=== PATIENT | female | born 1980 | race Caucasian/White ===

== ENCOUNTER 2017-04-29 09:50 | Emergency (ER) | payer MEDICAID ==
[2017-04-29] MEDS ORDERED: ONDANSETRON HCL IV 4 MG/2 ML VIAL IV ONE (09:55)
[2017-04-29] MEDS ORDERED: 0.9 % SODIUM CHLORIDE 1,000 ML BAG IV ONE (09:55)
--- NOTE | 2017-04-29 10:01 | Emergency Department Record ---
History of Present Illness - General Chief complaint: Vomiting Stated complaint: VOMITING Time Seen by Provider: 04/29/17 09:54 Source: Patient Mode of Arrival: Ambulatory Limitations: No limitations - History of Present Illness Initial comments: 37 yo female presents with nausea, vomiting, and diarrhea since Friday. Her daughters had been sick as well. No fevers. No blood in either. She has a history of having her gall bladder removed. No recent travel or antibiotics. Her daughters have since improved. MD complaint: Diarrhea, Nausea, Vomiting -: Days(s) (3) Description of Vomiting: Watery Description of Diarrhea: Water Location: Diffuse Radiation: None Severity: Moderate Quality: Cramping Consistency: Intermittent Improves with: None Worsens with: Eating Associated Symptoms: Loss of appetite - Related Data Previous Rx's Medication Instructions Recorded Budesonide [Pulmicort] 0.5 mg INH RESP.BID #60 ml 09/25/15 Ondansetron [Zofran Odt] 4 mg PO Q8H #15 tab.rapdis 04/29/17 Allergies Allergy/AdvReac Type Severity Reaction Status Date / Time promethazine HCl AdvReac BEHAVIORAL Verified 09/25/15 12:14 [From Phenergan] CHANGES Review of Systems Constitutional: Reports: Malaise. Denies: Chills, Fever, Weakness Eyes: Denies: Eye discharge, Eye pain, Vision change ENT: Denies: Congestion, Throat pain Respiratory: Reports: Cough. Denies: Dyspnea, Hemoptysis, Stridor, Wheezes Cardiovascular: Denies: Chest pain, Palpitations, Syncope Endocrine: Reports: Fatigue. Denies: Polydipsia, Polyuria Gastrointestinal: Reports: Abdominal pain, Diarrhea, Nausea, Vomiting. Denies: Constipation, Hematemesis, Hematochezia, Melena Genitourinary: Denies: Dysuria, Urgency Musculoskeletal: Denies: Arthralgia, Back pain, Myalgia, Neck pain, Other Skin: Reports: Bruising. Denies: Change in color, Pruritus Neurological: Denies: Confusion, Numbness, Weakness Psychiatric: Denies: Anxiety Hematological/Lymphatic: Denies: Blood Clots, Easy bleeding, Easy bruising, Swollen glands Past Medical History - SOCIAL HISTORY Smoking Status: Current some day smoker - RESPIRATORY Hx Respiratory Disorders: Yes Hx Asthma: Yes - CARDIOVASCULAR Hx Cardio Disorders: Yes Comment:: mitral valve prolapse - NEURO Hx Neuro Disorders: No - GI Hx GI Disorders: Yes Hx Irritable Bowel: Yes - Hx Genitourinary Disorders: No - ENDOCRINE Hx Endocrine Disorders: No - MUSCULOSKELETAL Hx Musculoskeletal Disorders: No - PSYCH Hx Psych Problems: Yes Hx Anxiety: Yes - HEMATOLOGY/ONCOLOGY Hx Hematology/Oncology Disorders: No Family Medical History Hx Cancer: Grandparents Physical Exam - General General Appearance: Alert, Oriented x3, Cooperative, No acute distress Limitations: No limitations - Head Head exam: Normal inspection - Eye Eye exam: Normal appearance, PERRL. negative: Conjunctival injection, Periorbital swelling - ENT ENT exam: Normal exam, Mucous membranes moist, Normal external ear exam Ear exam: Normal external inspection. negative: External canal tenderness Nasal Exam: Normal inspection. negative: Discharge, Sinus tenderness Mouth exam: Normal external inspection - Neck Neck exam: Normal inspection, Full ROM. negative: Tenderness - Respiratory Respiratory exam: Normal lung sounds bilaterally. negative: Accessory muscle use, Decreased breath sounds, Prolonged expiratory, Respiratory distress, Rhonchi, Stridor, Wheezes - Cardiovascular Cardiovascular Exam: Regular rate, Normal rhythm, Normal heart sounds Peripheral Pulses: 2+: Radial (R), Radial (L) - GI/Abdominal GI/Abdominal exam: Soft, Normal bowel sounds. negative: Distended, Guarding, Hernia, Rebound, Rigid, Tenderness - Rectal Rectal exam: Deferred - exam: Deferred - Extremities Extremities exam: Normal inspection, Full ROM, Normal capillary refill. negative: Pedal edema, Tenderness - Back Back exam: Reports: Normal inspection, Full ROM. Denies: CVA tenderness (R), CVA tenderness (L), Muscle spasm, Rash noted, Tenderness - Neurological Neurological exam: Alert, Normal gait, Oriented X3 - Psychiatric Psychiatric exam: Normal affect, Normal mood. negative: Agitated, Anxious - Skin Skin exam: Dry, Intact, Normal color, Warm Course - Reevaluation(s) Reevaluation #1: 04/29/17 10:20 No acute changes on the CBC 04/29/17 10:46 No acute changes on the CMP.Lipase or UA 04/29/17 11:06 The patient is doing very well We reviewed the labs No vomiting or diarrhea She will be DC home with supportive care and reasons for follow up Medical Decision Making - Lab Data Result diagrams: 04/29/17 10:07 04/29/17 10:07 Disposition Disposition: Discharge Clinical Impression: Vomiting and diarrhea Condition: (1) Good Instructions: Gastroenteritis (ED), Acute Nausea and Vomiting (ED) Additional Instructions: Rest and stay well hydrated Return if you have fever, pain, uncontrolled vomiting or diarrhea Take the Zofran as needed for nausea Call your doctor for close follow up of this ER visit. Prescriptions: Ondansetron [Zofran Odt] 4 mg PO Q8H #15 tab.rapdis Forms: Patient Portal Access Time of Disposition: 11:08 Quality - Quality Measures Quality Measures: N/A - Blood Pressure Screening Does Patient Have Any of the Following: No Blood Pressure Classification: Pre-Hypertensive BP Reading Systolic Measurement: 127 Diastolic Measurement: 85 Screening for High Blood Pressure: < Pre-Hypertensive BP, F/U Documented > [ G8950] Pre-Hypertensive Follow-up Interventions: Referral to alternative/primary care provider.
[2017-04-29 10:18] LABS: BASO % 0.1 % (0-6); EOS % 0.8 % (0-6); GRAN % 73.9 % (47-80); HEMATOCRIT 39.6 % (35.0-47.0); HEMOGLOBIN 13.8 gm/dl (11.6-16.0); LYMPH % 19.2 % (16-45); MEAN CELL VOLUME 97.5 fl (81-97); MEAN CORPUSCULAR HGB CONC 34.8 g/dl (32-36); MEAN PLATELET VOLUME 8.9 fl (7.4-10.4); PLATELET COUNT 235 K/uL (130-400); RED BLOOD COUNT 4.06 M/uL (3.80-5.40); RED CELL DISTRIBUTION WIDTH 11.7 % (11.5-14.5); WHITE BLOOD COUNT W/O DIFF 7.6 K/uL (4.2-12.2)
[2017-04-29 10:20] LABS: URINE APPEARANCE CLEAR; URINE BILIRUBIN NEGATIVE (NEGATIVE); URINE BLOOD SMALL (NEGATIVE); URINE COLOR YELLOW; URINE GLUCOSE (UA) NEGATIVE (NEGATIVE); URINE KETONE NEGATIVE (NEGATIVE); URINE LEUKOCYTE ESTERASE NEGATIVE (NEGATIVE); URINE NITRITE NEGATIVE (NEGATIVE); URINE PROTEIN NEGATIVE (NEGATIVE); URINE UROBILINOGEN 0.2 E.U./dL (0.20 - 1.00)
[2017-04-29 10:33] LABS: ALB/GLOB RATIO 1.4 (1.1-1.8); ALBUMIN 4.2 g/dL (4.0-5.0); ALKALINE PHOSPHATASE 52 U/L (35-104); ALT/SGPT 6 U/L (<33); AST/SGOT 9 U/L (10.0-35.0); BLOOD UREA NITROGEN 8 mg/dL (6-20); CREATININE 0.6 mg/dL (0.5-0.9); EST GLOMERULAR FILTRATION RATE > 60 mL/min; GLUCOSE,RANDOM 85 mg/dL (74-109); HCG,QUALITATIVE URINE NEGATIVE (NEGATIVE); LIPASE 16 U/L (13-60); TOTAL PROTEIN 7.2 g/dL (6.6-8.7); URINE MUCUS LIGHT; URINE WBC NONE SEEN (0-2/hpf)
== END 2017-04-29 11:22 | disposition home or self-care (01) ==
LOC: ER 09:50
DX: R11.2 Nausea with vomiting, unspecified (principal); R19.7 Diarrhea, unspecified
CPT/HCPCS: 99284 ×2; 96374; 96361; 83690; 85025; 80053; 81001; 81025; J2405; J7030

== ENCOUNTER 2017-07-17 14:10 | Emergency (ER) | payer MEDICAID ==
--- NOTE | 2017-07-17 14:35 | Emergency Department Record ---
History of Present Illness - General Chief complaint: Eye Problem Stated complaint: BLURRED VISION Time Seen by Provider: 07/17/17 14:27 Source: Patient Mode of Arrival: Ambulatory Limitations: No limitations - History of Present Illness Initial comments: The patient is here due to the acute onset of visual changes to her eyes about 2 hours ago. She states she was at a computer screen and then felt that she was having trouble seeing the screen with both eyes. The symptoms have slowly improved and then changed to the L eye mainly and became like tunnel vision. She then did develop a very mild posterior LU after. Presently the patient denies any significant pain, arm or leg weakness, numbness, or tingling or balance issues. She now states the vision is much improved but not back to normal. The patient does have a hx of migraines but has not had a visual aura in the past. chief complaint: Vision change Onset/Timin -: Hour(s) Onset Description: Sudden Location: Both eyes Place: Work If Injury: Other Eye Symptoms: Blurry vision Severity: Mild If Pain, Quality: Aching - Related Data Visual acuity (L) = 20/: 25 Visual acuity (R) = 20/: 25 With correction: No Previous Rx's Medication Instructions Recorded Budesonide [Pulmicort] 0.5 mg INH RESP.BID #60 ml 09/25/15 Allergies Allergy/AdvReac Type Severity Reaction Status Date / Time promethazine HCl AdvReac BEHAVIORAL Verified 07/17/17 14:19 [From Phenergan] CHANGES Travel Screening - Travel/Exposure Within Last 30 Days Have you traveled within the last 30 days?: No - Travel/Exposure Within Last Year Have you traveled outside the [place] in the last year?: No - Additonal Travel Details Have you been exposed to anyone with a communicable illness?: No - Travel Symptoms Symptom Screening: None Review of Systems Constitutional: Denies: Chills, Fever Eyes: Denies: Eye discharge ENT: Denies: Congestion Respiratory: Denies: Cough, Dyspnea Past Medical History - SOCIAL HISTORY Smoking Status: Current some day smoker Alcohol Use: None Drug Use: None - RESPIRATORY Hx Respiratory Disorders: Yes Hx Asthma: Yes - CARDIOVASCULAR Hx Cardio Disorders: Yes Comment:: mitral valve prolapse - NEURO Hx Neuro Disorders: No - GI Hx GI Disorders: Yes Hx Irritable Bowel: Yes - Hx Genitourinary Disorders: No - ENDOCRINE Hx Endocrine Disorders: No - MUSCULOSKELETAL Hx Musculoskeletal Disorders: No - PSYCH Hx Psych Problems: Yes Hx Anxiety: Yes - HEMATOLOGY/ONCOLOGY Hx Hematology/Oncology Disorders: No Family Medical History Any Significant Family History?: No Hx Cancer: Grandparents Physical Exam - General General Appearance: Alert, Oriented x3, Cooperative, No acute distress - Head Head exam: Atraumatic, Normocephalic, Normal inspection - Eye Eye exam: Normal appearance, PERRL, EOMI, Other (Neg papilledema.) With correction: No - ENT ENT exam: Normal exam, Mucous membranes moist, Normal external ear exam, Normal orophraynx, TM's normal bilaterally Throat exam: Normal inspection. negative: Tonsillar erythema, Tonsillar exudate - Neck Neck exam: Normal inspection, Full ROM. negative: Lymphadenopathy, Meningismus (The neck is very supple.), Tenderness - Respiratory Respiratory exam: Normal lung sounds bilaterally. negative: Respiratory distress - Cardiovascular Cardiovascular Exam: Regular rate, Normal rhythm, Normal heart sounds - GI/Abdominal GI/Abdominal exam: Soft, Normal bowel sounds. negative: Tenderness - Extremities Extremities exam: Normal inspection, Full ROM, Normal capillary refill. negative: Tenderness - Neurological Neurological exam: Alert, Normal gait, Oriented X3. negative: Abnormal gait, Motor sensory deficit Course Vital Signs 07/17/17 14:20 Temperature 98.6 F Pulse Rate 90 Respiratory 18 Rate Blood Pressure 123/81 Pulse Ox 98 - Reevaluation(s) Reevaluation #1: The patient is doing a lot better. She feels her vision is still slowly improving and now her LU is slowly worsening also. Now it is feeling like a normal migraine to her. She does have a hx of migraine LU's but usually does not get the visual aura. She is ready for home. I explained to her that I do feel she is having a classic migraine LU. She is again refusing a pain shot and just wants to go home. 07/17/17 15:51 Medical Decision Making - Data Complexity MDM Data: Labs Ordered and/or Reviewed, X-Ray Ordered and/or Reviewed - Lab Data Result diagrams: 07/17/17 14:50 07/17/17 14:50 - Radiology Data Radiology results: Report reviewed (Head CT: Neg.) Disposition Disposition: Discharge Clinical Impression: Migraine Qualifiers: Migraine type: unspecified Status migrainosus presence: without status migrainosus Intractability: not intractable Qualified Code(s): G43.909 - Migraine, unspecified, not intractable, without status migrainosus Disposition: Home, Self-Care Condition: (2) Stable Instructions: Migraine Headache (ED) Additional Instructions: Please continue your regular medicines and use your home pain medicines as needed. Please see your PCP next week for re check and return to the ER for any worsening symptoms. Forms: Patient Portal Access Time of Disposition: 15:56 Quality - Quality Measures Quality Measures: N/A - Blood Pressure Screening View Details: Yes Does Patient Have Any of the Following: No Blood Pressure Classification: Pre-Hypertensive BP Reading Systolic Measurement: 123 Diastolic Measurement: 81 Screening for High Blood Pressure: Patient Exclusion, Hx of HTN [G9744]
[2017-07-17] MEDS ORDERED: IBUPROFEN 600 MG TABLET PO ONE (14:51)
[2017-07-17 14:59] LABS: BASO % 0.2 % (0-6); EOS % 0.9 % (0-6); GRAN % 59.6 % (47-80); HEMATOCRIT 40.2 % (35.0-47.0); HEMOGLOBIN 13.6 gm/dl (11.6-16.0); LYMPH % 33.9 % (16-45); MEAN CELL VOLUME 98.5 fl (81-97); MEAN CORPUSCULAR HEMOGLOBIN 33.3 pg (27-33); MEAN CORPUSCULAR HGB CONC 33.8 g/dl (32-36); MEAN PLATELET VOLUME 8.8 fl (7.4-10.4); MONO % 5.4 % (0-9); PLATELET COUNT 193 K/uL (130-400); RED BLOOD COUNT 4.08 M/uL (3.80-5.40); RED CELL DISTRIBUTION WIDTH 12.2 % (11.5-14.5); WHITE BLOOD COUNT W/O DIFF 4.4 K/uL (4.2-12.2)
[2017-07-17 15:20] LABS: BLOOD UREA NITROGEN 19 mg/dL (6-20)
[2017-07-17 15:21] LABS: CREATININE 0.5 mg/dL (0.5-0.9); EST GLOMERULAR FILTRATION RATE > 60 mL/min; TOTAL PROTEIN 7.2 g/dL (6.6-8.7)
[2017-07-17 15:23] LABS: GLUCOSE,RANDOM 146 mg/dL (74-109)
[2017-07-17 15:26] LABS: ALB/GLOB RATIO 1.6 (1.1-1.8); ALBUMIN 4.4 g/dL (4.0-5.0); ALKALINE PHOSPHATASE 44 U/L (35-104); ALT/SGPT 7 U/L (<33); AST/SGOT 9 U/L (10.0-35.0)
--- NOTE | 2017-07-18 10:10 | CT SCAN REPORT ---
EXAM: CT OF THE HEAD WITHOUT CONTRAST HISTORY: BILATERAL BLURRED VISION BEGINNING 2.5 HOURS AGO. TECHNIQUE: Routine noncontrast CT examination of the head was obtained. Comparison: None. FINDINGS: The ventricles and subarachnoid spaces are normal in size. No area of abnormally increased or decreased attenuation is noted throughout the brain substance. No abnormal extraaxial fluid collection is seen. No skull abnormality is visualized. The visualized paranasal sinuses and mastoid air cells are clear. The orbits as visualized are unremarkable. IMPRESSION: NEGATIVE NONCONTRAST CT APPEARANCE OF THE HEAD. JOB NUMBER: [id number] [facility]
== END 2017-07-17 16:04 | disposition home or self-care (01) ==
LOC: ER 14:10
DX: G43.909 Migraine, unspecified, not intractable, without status migrainosus (principal); H53.8 Other visual disturbances; M54.2 Cervicalgia
CPT/HCPCS: 70450; 80053; 85025; 99283; 99284

== ENCOUNTER 2019-05-26 05:29 | Emergency (ER) | payer SELFPAY ==
[2019-05-26] MEDS ORDERED: ONDANSETRON HCL IV 4 MG/2 ML VIAL IVP ONE (05:42)
[2019-05-26] MEDS ORDERED: HYOSCYAMINE SULFATE ODT 0.125 MG TAB.SUBL SL ONE (05:42)
--- NOTE | 2019-05-26 05:44 | Emergency Department Record ---
History of Present Illness - General Chief Complaint: Abdominal Pain Stated Complaint: ABDOMINAL PAIN/DIARRHEA Time Seen by Provider: 05/26/19 05:41 Source: Patient Mode of Arrival: Ambulatory Limitations: No limitations - History of Present Illness Initial Comments: 39 yo female presents to ED for evaluation of nausea, vomiting, diarrhea, and abdominal cramping that began approximately 12 hours ago. Patient denies fevers, chills, urinary symptoms, or flank pain symptoms. Patient does report previous appy and cayden, denies similar symptoms previously. Patient also reports history of diverticulitis, reports pain and discomfort mostly to the epigastric region on examination. MD Complaint: Abdominal pain Onset/Timin -: Hour(s) Radiation: None Migration to: No migration Severity: Moderate Quality: Cramping Consistency: Constant Improves With: Nothing Worsens With: Nothing Associated Symptoms: Denies other symptoms - Related Data Patient : No Previous Rx's Medication Instructions Recorded Budesonide [Pulmicort] 0.5 mg INH RESP.BID #60 ml 09/25/15 Hyoscyamine Sulfate [Levsin-Sl] 0.25 mg SL Q8H PRN #15 tab.subl 05/26/19 Ondansetron [Zofran Odt] 4 mg PO Q8H PRN #15 tab.rapdis 05/26/19 Allergies Allergy/AdvReac Type Severity Reaction Status Date / Time promethazine HCl AdvReac BEHAVIORAL Verified 07/17/17 14:19 [From Phenergan] CHANGES Review of Systems Constitutional: Denies: Chills, Fever, Malaise, Night sweats Eyes: Denies: Eye discharge, Eye pain ENT: Denies: Congestion, Ear pain, Epistaxis Respiratory: Denies: Cough, Dyspnea Cardiovascular: Denies: Chest pain, Dyspnea on exertion Endocrine: Denies: Fatigue, Heat or cold intolerance Gastrointestinal: Reports: Abdominal pain, Diarrhea, Nausea, Vomiting. Denies: Constipation Genitourinary: Denies: Incontinence, Retention Musculoskeletal: Denies: Arthralgia, Back pain Skin: Denies: Bruising, Change in color Neurological: Denies: Abnormal gait, Confusion, Headache, Seizure Psychiatric: Denies: Anxiety Hematological/Lymphatic: Denies: Anemia, Blood Clots Past Medical History - SOCIAL HISTORY Smoking Status: Current some day smoker Drug Use: None - RESPIRATORY Hx Respiratory Disorders: Yes Hx Asthma: Yes - CARDIOVASCULAR Hx Cardio Disorders: Yes Comment:: mitral valve prolapse - NEURO Hx Neuro Disorders: No - GI Hx GI Disorders: Yes Hx Irritable Bowel: Yes - Hx Genitourinary Disorders: No - ENDOCRINE Hx Endocrine Disorders: No - MUSCULOSKELETAL Hx Musculoskeletal Disorders: No - PSYCH Hx Psych Problems: Yes Hx Anxiety: Yes - HEMATOLOGY/ONCOLOGY Hx Hematology/Oncology Disorders: No Family Medical History Hx Cancer: Grandparents Physical Exam - General General Appearance: Alert, Oriented x3, Cooperative, Mild distress Limitations: No limitations - Head Head exam: Atraumatic, Normocephalic, Normal inspection Head exam detail: negative: Abrasion, Contusion, Mcgovern's sign, General tenderness, Hematoma, Laceration - Eye Eye exam: Normal appearance. negative: Conjunctival injection, Periorbital swelling, Periorbital tenderness, Scleral icterus - ENT Ear exam: negative: Auricular hematoma, Auricular trauma Nasal Exam: negative: Active bleeding, Discharge, Dried blood, Foreign body Mouth exam: negative: Drooling, Laceration, Muffled voice, Tongue elevation - Neck Neck exam: Normal inspection. negative: Meningismus, Tenderness - Respiratory Respiratory exam: Normal lung sounds bilaterally. negative: Rales, Respiratory distress, Rhonchi, Stridor - Cardiovascular Cardiovascular Exam: Regular rate, Normal rhythm, Normal heart sounds - GI/Abdominal GI/Abdominal exam: Soft, Tenderness (Mild TTP to the epigastric region on examination, no rebound, guareding, or peritoneal signs on examination.). negative: Rebound, Rigid - Rectal Rectal exam: Deferred - exam: Deferred - Extremities Extremities exam: Normal inspection. negative: Pedal edema, Tenderness - Back Back exam: Denies: CVA tenderness (R), CVA tenderness (L) - Neurological Neurological exam: Alert, Normal gait, Oriented X3 - Psychiatric Psychiatric exam: Normal affect, Normal mood - Skin Skin exam: Normal color. negative: Abrasion Type of lesion: negative: abrasion Course Vital Signs 05/26/19 05:38 Temperature 98.4 F Pulse Rate [ 82 Left] Respiratory 16 Rate Blood Pressure 119/78 [Left Arm] Pulse Ox 97 - Reevaluation(s) Reevaluation #1: 05/26/19 06:27 Laboratory studies were reviewed and appear grossly unremarkable for an acute process. Reevaluation #2: 05/26/19 07:02 Laboratory studies were reviewed and appear grossly unremarkable for an acute process. Reevaluation #3: 05/26/19 07:47 CT Abdomen and Pelvis: Nondistended mildly thickened fluid-filled distal small bowel loops concerning for enteritis, no obstruction. 3.7x2.6 cm septated cyst left adnexa Cholecystectomy Small right middle lobe AVM Granulomatous disease Patient was updated on all results, reports that she is feeling much better and appears stable for discharge at this time on Zofran and Levsin as directed. Medical Decision Making - Lab Data Result diagrams: 05/26/19 06:00 05/26/19 06:00 Disposition Disposition: Discharge Clinical Impression: Nausea vomiting and diarrhea Disposition: Home, Self-Care Condition: (2) Stable Instructions: Acute Nausea and Vomiting (ED) Additional Instructions: Return to ED if your symptoms worsen or if you have any concerns. Zofran and Levsin as directed. Follow-up with your family doctor in 3-5 days as directed. Prescriptions: Hyoscyamine Sulfate [Levsin-Sl] 0.25 mg SL Q8H PRN #15 tab.subl PRN Reason: Abdominal Pain Ondansetron [Zofran Odt] 4 mg PO Q8H PRN #15 tab.rapdis PRN Reason: Nausea/Vomiting Forms: Patient Portal Access Time of Disposition: 07:52 Quality - Quality Measures Quality Measures: N/A - Blood Pressure Screening Does Patient Have Any of the Following: No Blood Pressure Classification: Normal BP Reading Systolic Measurement: 119 Diastolic Measurement: 78 Screening for High Blood Pressure: < Normal BP, F/U Not Required > [G8783]
[2019-05-26] MEDS ORDERED: 0.9 % SODIUM CHLORIDE 1000ML 1,000 ML IV SCH (05:45)
[2019-05-26 06:10] LABS: ABSOLUTE NEUTROPHIL COUNT 5.75; BASO % 0.1 % (0-6); EOS % 1.1 % (0-6); GRAN % 78.1 % (47-80); HEMATOCRIT 41.3 % (35.0-47.0); LYMPH % 14.5 % (16-45); MEAN CORPUSCULAR HEMOGLOBIN 33.9 pg (27-33); MEAN CORPUSCULAR HGB CONC 33.9 g/dl (32-36); MEAN PLATELET VOLUME 8.4 fl (7.4-10.4); MONO % 6.2 % (0-9); PLATELET COUNT 179 K/uL (130-400); RED BLOOD COUNT 4.13 M/uL (3.80-5.40); RED CELL DISTRIBUTION WIDTH 11.9 % (11.5-14.5); WHITE BLOOD COUNT W/O DIFF 7.4 K/uL (4.2-12.2)
[2019-05-26 06:18] LABS: BLOOD UREA NITROGEN 13 mg/dL (6-20); CREATININE 0.4 mg/dL (0.5-0.9); EST GLOMERULAR FILTRATION RATE > 60 mL/min
[2019-05-26 06:19] LABS: LIPASE 30 U/L (13-60)
[2019-05-26 06:21] LABS: GLUCOSE,RANDOM 102 mg/dL (74-109)
[2019-05-26 06:24] LABS: ALBUMIN 4.7 g/dL (4.0-5.0); ALKALINE PHOSPHATASE 51 U/L (35-104); ALT/SGPT 6 U/L (<33); AST/SGOT 12 U/L (10.0-35.0)
[2019-05-26 06:29] LABS: URINE APPEARANCE CLEAR; URINE BILIRUBIN NEGATIVE (NEGATIVE); URINE BLOOD TRACE-I (NEGATIVE); URINE COLOR YELLOW; URINE GLUCOSE (UA) NEGATIVE (NEGATIVE); URINE KETONE NEGATIVE (NEGATIVE); URINE LEUKOCYTE ESTERASE NEGATIVE (NEGATIVE); URINE NITRITE NEGATIVE (NEGATIVE); URINE PROTEIN NEGATIVE (NEGATIVE); URINE UROBILINOGEN 0.2 E.U./dL (0.20 - 1.00)
[2019-05-26 06:43] LABS: URINE EPITHELIAL CELLS 0 - 2 (FEW); URINE RBC NONE SEEN (NONE SEEN); URINE WBC NONE SEEN (0-2/hpf)
[2019-05-26 06:44] LABS: HCG,QUALITATIVE URINE NEGATIVE (NEGATIVE); URINE BACTERIA NONE SEEN
--- NOTE | 2019-05-26 07:46 | CT SCAN REPORT ---
EXAMINATION: CT Abdomen and Pelvis with IV Contrast EXAM DATE: 05/26/2019 7:18 AM TECHNIQUE: CT imaging of the abdomen and pelvis was performed with intravenous contrast. Coronal and sagittal images were reconstructed. IV Contrast: The amount and type of contrast are recorded in the medical record. INDICATION: abdominal pain COMPARISON: None ENCOUNTER: Not applicable CT ABDOMEN AND PELVIS FINDINGS: Lung Bases: Left lower lobe granuloma Small tortuous pulmonary artery branch right middle lobe with a peripheral nidus consistent with small AVM. Hepatobiliary: The liver has a normal size with a smooth surface. The hepatic and portal veins appear patent. The gallbladder is absent. There is no biliary dilatation. Pancreas: The pancreas is normal. Spleen: The spleen is not enlarged. Adrenals: The adrenal glands are normal. Kidneys, Ureters, & Bladder: Both kidneys have a normal size and there is no hydronephrosis. Both ur eters have a normal caliber and the urinary bladder is unremarkable. Gastrointestinal: Stomach unremarkable. Nondistended mildly thickened fluid-filled distal small bowel loops may be related to enteritis. No obstruction. Appendectomy. The large bowel is normal. Reproductive Organs: 3.7 x 2.6 cm septated cyst left adnexa. Follow-up pelvic ultrasound/MRI as clini neeraj directed Lymphatic System: There is no adenopathy within the abdomen or pelvis. Vasculature: Normal caliber abdominal aorta. Peritoneum: No free fluid, free air, or inflammation Abdominal Wall & Musculoskeletal: No suspicious bone lesions. IMPRESSION: 1. Nondistended mildly thickened fluid-filled distal small bowel loops possible enteritis. No obstruc tion 2. 3.7 x 2.6 cm septated cyst left adnexa. Follow-up pelvic ultrasound/MRI as clinically directed 3. Cholecystectomy 4. Small right middle lobe pulmonary AVM 5. Granulomatous disease Dictated by: Ehsan Steel MD on 05/26/2019 7:31 AM. .
== END 2019-05-26 08:05 | disposition home or self-care (01) ==
LOC: ER 05:29
DX: R11.2 Nausea with vomiting, unspecified (principal); R19.7 Diarrhea, unspecified; F17.210 Nicotine dependence, cigarettes, uncomplicated
CPT/HCPCS: 74177; 80053; 81001; 81025; 83690; 85025; 96361; 96374; 99284; J2405; J7030